=== PATIENT | female | born 1995 | race Hispanic/Latino ===

== ENCOUNTER 2019-09-20 17:26 | Emergency (ER) | payer SELFPAY ==
[~2019-09-20] VITALS: Ht 157.5 cm; Wt 79.6 kg
[2019-09-20] MEDS ORDERED: FAMOTIDINE 20 MG/2 ML VIAL IV STA (18:21)
[2019-09-20] MEDS ORDERED: DIPHENHYDRAMINE HCL INJ 50 MG/ML VIAL IV ONE (18:30)
[2019-09-20] MEDS ORDERED: EPINEPHRINE HCL 1:1000 1ML 1 MG/ML AMP SQ ONE (18:30)
[2019-09-20] MEDS ORDERED: METHYLPREDNISOLONE SOD SUCC 125 MG/2ML VIAL IV ONE (18:30)
[2019-09-20] MEDS ORDERED: EPINEPHRINE HCL 1:1000 1ML 1 MG/ML AMP ONE (18:46)
[2019-09-20] MEDS ORDERED: FAMOTIDINE 20 MG/2 ML VIAL IV ONE (18:46)
[2019-09-20] MEDS ORDERED: METHYLPREDNISOLONE SOD SUCC 125 MG/2ML VIAL ONE (18:46)
[2019-09-20] MEDS ORDERED: DIPHENHYDRAMINE HCL INJ 50 MG/ML VIAL ONE (18:46)
[2019-09-20] MEDS ORDERED: PREDNISONE20 MG PO (19:27)
== END 2019-09-20 19:44 | disposition home or self-care (01) ==
LOC: FSED 17:26
DX: R21 Rash and other nonspecific skin eruption (principal); T78.1XXA Other adverse food reactions, not elsewhere classified, initial encounter
CPT/HCPCS: 99283; J0171; J1200; J2930